=== PATIENT | female | born 2000 | race Caucasian/White ===

== ENCOUNTER 2020-11-23 16:25 | Inpatient (IN) | payer BC ==
[~2020-11-23] VITALS: Ht 167.6 cm; Wt 96.2 kg
[2020-11-23 17:42] LABS: RED BLOOD COUNT 3.85 M/UL (4.00-5.10); WHITE BLOOD COUNT 10.3 K/UL (4.5-11.0)
[2020-11-23] MEDS ORDERED: TUMS200 MG PO (18:32)
[2020-11-24] MEDS ORDERED: FEROSUL325 MG PO (23:28)
[2020-11-24] MEDS ORDERED: HYDROCODONE-AC1 EACH PO (23:28)
[2020-11-24] MEDS ORDERED: IBUPROFEN600 MG PO (23:28)
[2020-11-24] MEDS ORDERED: DOCUSATE SODIU250 MG PO (23:28)
[2020-11-25 06:42] LABS: HEMOGLOBIN 10.2 gm/dl (12.3-15.3)
== END 2020-11-26 16:29 | disposition home or self-care (01) | DRG 807 ==
LOC: GENOP 16:25 → OB 17:13
PROVIDERS: Obstetrics & Gynecology; ADMIT Obstetrics & Gynecology
PROC: 4A1HXCZ Monitoring of Products of Conception, Cardiac Rate, External Approach (ICD-10-PCS; 2020-11-23)
PROC: 10E0XZZ Delivery of Products of Conception, External Approach (ICD-10-PCS; principal; 2020-11-24)
PROC: 0KQM0ZZ Repair Perineum Muscle, Open Approach (ICD-10-PCS; 2020-11-24)
PROC: 0U7C7ZZ Dilation of Cervix, Via Natural or Artificial Opening (ICD-10-PCS; 2020-11-24)
DX: O13.4 Gestational [pregnancy-induced] hypertension without significant proteinuria, complicating childbirth (principal); Z37.0 Single live birth; Z3A.37 37 weeks gestation of pregnancy; Z20.822 Contact with and (suspected) exposure to COVID-19; O70.1 Second degree perineal laceration during delivery; Z80.3 Family history of malignant neoplasm of breast
CPT/HCPCS: 36415; 51702; 81001; 82800; 85014; 85018; 85025; 86850; 86900; 86901; 90471; 90715; J0290; J1580; J2405; J2590; J7120; U0002